=== PATIENT | female | born 1930 | race Caucasian/White ===

== ENCOUNTER 2016-09-13 05:15 | Emergency (ER) | payer MEDICARE, MEDICAID ==
[2016-09-13 05:18] VITALS: BMI 23.3
--- NOTE | 2016-09-13 05:46 | EDPRACDOC ---
- General Chief Complaint: Fall Stated Complaint: FALL: LOWER BACK PAIN Time Seen by Provider: 09/13/16 05:29 Information Source: Family, Long-Term, Case Management Director Exam Limitations: Other (dementia) - History of Present Illness Onset: SUB ACUTE CARE NURSE Injuries/Pain Location: Reports: back. Denies: head Reason for Fall: Reports: slipped Loss of Consciousness: no loss of consciousness Associated Symptoms (Fall): Reports: other (lower back pain which her family stated is chronic) Allergies/Adverse Reactions: Allergies No Known Allergies Allergy (Verified 09/13/16 05:27) Home Medications: Ambulatory Orders Bisoprolol Fumarate [Zebeta] 2.5 mg PO DAILY 01/03/14 Ipratropium/Albuterol Sulfate [Duoneb 0.5 mg-3 mg/3 ml Soln] 3 ml NEB TID Isosorbide Mononitrate [Imdur] 15 mg PO DAILY 01/03/14 Memantine HCl [Namenda] 10 mg PO BID 01/03/14 Nitroglycerin [Nitrostat] 0.4 mg SL Q5MX3 PRN 01/03/14 Sertraline HCl [Zoloft] 50 mg PO QHS 01/03/14 Atorvastatin Calcium [Lipitor] 80 mg PO HS 07/26/15 Latanoprost 1 drop OU QHS 07/26/15 Omeprazole 40 mg PO DAILY 07/26/15 PEG-Electrolytes (Miralax) [Miralax] 17 g PO Q48H 07/26/15 Acetaminophen [Acetaminophen Extra Strength] 1,000 mg PO Q6H PRN 07/27/15 Aspirin [Children's Aspirin] 81 mg PO DAILY 07/27/15 Calcium Carbonate/Vitamin D3 [Calcium + Vit D Caplet (600mg/400IU)] 1 tab PO DAILY 07/27/15 Clopidogrel Bisulfate [Plavix] 75 mg PO DAILY 07/27/15 Oxybutynin Chloride [Oxybutynin Chloride ER] 10 mg PO DAILY 07/27/15 Furosemide 20 mg PO .QEVENING 08/18/15 Tramadol-Acetaminophen [Ultracet 37.5/325] 1 tab PO TID 08/18/15 Furosemide [Lasix] 40 mg PO QAM 08/31/15 Rivastigmine Tartrate [Exelon 4.6 mg Patch] 4.6 mg TD DAILY 11/20/15 Levothyroxine [Synthroid, Levoxyl] 125 mcg PO DAILY 05/12/16 Mag Hydrox/Al Hydrox/Simeth [Maalox Suspension] 30 ml PO Q6H PRN 05/12/16 Magnesium Hydroxide [Milk of Magnesia] 30 ml PO BID PRN 05/12/16 Benzocaine [Orajel] 7 gm MM TID PRN 09/13/16 Budesonide [Pulmicort Flexhaler] 180 mcg IH BID 09/13/16 Cholecalciferol (Vitamin D3) [Vitamin D3 (cholecalciferol)] 5,000 unit PO WEEKLY 09/13/16 Loperamide HCl [Imodium A-D] 2 mg PO .ASDIRECTED 09/13/16 Other History: she suffers w chronic back pain and has seen a day habilitation specialist. her family stated that the degree of pain that she is expressing today is consistent with what theyve seen in the past. ED Past Medical History - History Reviewed Yes Nurses notes reviewed and agree except as marked - Patient Medical History Neurological History: Reports: Dementia Cardiac History: Reports: Coronary Artery Disease, Hypertension, Congestive Heart Failure, Cardiac Catheterization, CABG (3 VESSEL), Hypercholesterolemia, Syncope (07/26/15 IN ED) Respiratory History: Reports: COPD, Pneumonia GI/ History: Reports: Gastroesophageal Reflux Musculoskeletal History: Reports: Arthritis (also GLAUCOMA, cataracts.) Psychological History: Denies: Depression, Substance Use Disorder Surgical History: Reports: CABG (3 VESSEL), Cardiac Catheterization - Family Medical History Reports: Hypertension (SISTERS, BROTHER), Cancer (MOTHER-COLON), Cardiac Disorders (SISTER- PACEMAKER). Denies: Diabetes, Stroke - Social Medical History Smoking Status: Never smoker Social History: Denies: Substance Use Disorder EDM Review of Systems - Review of Systems ROS Unobtainable: Yes Review of systems cannot be obtained due to the patient's medical condition (dementia) - Physical Exam Constitutional: Alert (Awake), No apparent distress Oriented to: Time, Person, Place Last recorded Vital Signs: Last Vital Signs Temp 98 F 09/13/16 05:19 Pulse 56 L 09/13/16 05:19 Resp 18 09/13/16 05:19 BP 146/68 09/13/16 05:19 Pulse Ox 95 09/13/16 05:19 Oxygen Pulse Oxygen Saturation 95 O2 Device Room Air Oxygen Flow Rate Fraction of Inspired Oxygen ( FIO2) - HEENT Head: Normal ( normocephalic) Eye Exam: Normal (PERRL, EOMI, Sclera white) Oropharynx: Normal (Pharynx:Moist without exudate,Gums-no swelling) Tympanic Membrane: Normal ENT EAC: Normal TMJ: Normal Nose: No Symptoms Reported (septum midline) Neck: negative: Step off (very mild cspine tenderness) - Respiratory/Cardiovascular Respiratory: Normal - CTA (BBS clear to auscultation without adventitious sounds ) Cardiovascular: Normal (RRR without murmur, gallop or rub) - GI Auscultation: Normal (NABS) Palpation: Normal (Soft,No rebound or guarding, non distended) Tenderness: Non tender Carlson's Sign: Negative - Musculoskeletal Back: Lumbar TTP. negative: Lumbar Step-off Extremities: Normal (Normal tone, Pulses 2+ No cyanosis or edema, FROM), Other ( no pain upon log roll of the hip,r) - Integumentary Skin: Normal, Warm, Dry Lymphatics: Normal (no adenopathy) - Neurologic Memory Impaired: Normal Motor Function: Normal (Normal tone, Pulses 2+ No cyanosis or edema, FROM) Cranial Nerve: Normal (CN II-X11 intact sensation, strength 5/5) Cerebellar: Normal Mood Description: Normal Perception: Normal - Re-evaluation Re-evaluation 1 Re-evaluation Time: 07:10 (i had a discussion with the pt's sisters about the xray findings. the pt has a day habilitation specialist, and i suggested that she should see her day habilitation specialist again. the sisters described her back pain as being severe and chronic. i do not believe that transfer to the care of a spin surgeon is warranted at this time. i believe that she should f/u with her day habilitation specialist and her sisters are going to speak with her facility about restarting therapy.) - Diagnostic Imaging C-spine Image interpreted by: Radiologist (chonic djd and compressions.no fracture.) Hip Image interpreted by: Radiologist (no fracture) L-Spine Image interpreted by: Radiologist (severe djd, osteoporosis, posibly new ompression,L1 but with sclerotic change) Decision Time to Discharge: 07:12 - Departure Yes I personally saw and evaluated the patient. Disposition: Custodial Facility Condition: Stable Final Diagnosis: Falls, Osteoporosis Lumbar spine strain Qualifiers: Encounter type: initial encounter Qualified Code(s): S39.012A - Strain of muscle, fascia and tendon of lower back, initial encounter Compression fx, lumbar spine Qualifiers: Encounter type: initial encounter Fracture type: closed Qualified Code(s): S32.000A - Wedge compression fracture of unspecified lumbar vertebra, initial encounter for closed fracture Instructions: RICE: Routine Care for Injuries, Back Pain, Thoracic (Lumbar) Strain, Vertebral Compression Fracture (ED), Fall Prevention for Older Adults ( ED) Education/Counseling Given To: Family Member Education/Counseling Given Regarding: Diagnosis, Treatment, Follow Up Additional Instructions: Call her day habilitation specialist to schedule the earliest available outpatient appointment.
--- NOTE | 2016-09-13 06:46 | DIRPT ---
CLINICAL DATA: Status post fall in bathroom. Found on floor. Right hip pain. Initial encounter. EXAM: RIGHT HIP (WITH PELVIS) 2-3 VIEWS COMPARISON: Pelvis radiograph performed 05/12/2016 FINDINGS: There is no evidence of fracture or dislocation. Both femoral heads are seated normally within their respective acetabula. The proximal right femur appears intact. Mild degenerative change is noted at the sacroiliac joints bilaterally. The visualized bowel gas pattern is grossly unremarkable in appearance. Clips are noted at the inguinal regions bilaterally. IMPRESSION: No evidence of fracture or dislocation. Electronically Signed By: Arsh Wetzel M.D. On: 09/13/2016 06:43
[2016-09-13] MEDS ORDERED: ACETAMINOPHEN 325 MG/TAB TABLET PO ONE (06:47)
--- NOTE | 2016-09-13 06:48 | DIRPT ---
CLINICAL DATA: Status post fall in bathroom. Found on floor. Neck pain. Initial encounter. EXAM: CERVICAL SPINE - COMPLETE 4+ VIEW COMPARISON: CT of the cervical spine performed 05/12/2016 FINDINGS: There is no evidence of acute fracture or subluxation. There is stable mild grade 1 anterolisthesis of C3 on C4. Degenerative change at the lower cervical spine is better characterized on prior CT. Chronic compression deformities are noted at the midthoracic spine. Prevertebral soft tissues are within normal limits. The provided odontoid view demonstrates no significant abnormality. The visualized lung apices are clear. IMPRESSION: 1. No evidence of acute fracture or subluxation along the cervical spine. 2. Mild degenerative change again noted along the cervical spine, and chronic compression deformities at the mid thoracic spine. Electronically Signed By: Arsh Wetzel M.D. On: 09/13/2016 06:45
--- NOTE | 2016-09-13 06:55 | DIRPT ---
CLINICAL DATA: Status post fall. Found on floor in bathroom. Lower back pain. Initial encounter. EXAM: LUMBAR SPINE - COMPLETE 4+ VIEW COMPARISON: Lumbar spine radiographs performed 12/04/2015 FINDINGS: There is significantly worsened compression deformity of vertebral body L1. Some of this may be acute in nature, though there is associated sclerotic change. The compression deformity at L2 appears relatively stable, with associated sclerotic change. No additional fractures are seen. Scattered calcification is noted along the abdominal aorta. The visualized bowel gas pattern is grossly unremarkable. Mild sclerotic change is noted at the sacroiliac joints. IMPRESSION: Significantly worsened compression deformity of vertebral body L1. Some of this may be acute in nature, given the patient's symptoms, though associated sclerotic change is seen. The compression deformity at L2 appears stable from November 2015. Electronically Signed By: Arsh Wetzel M.D. On: 09/13/2016 06:52
[2016-09-13 07:59] VITALS: BP 137/63; PULSE 57; TEMP 98.5
== END 2016-09-13 07:55 ==
LOC: ED 05:15
DX: S32.000A Wedge compression fracture of unspecified lumbar vertebra, initial encounter for closed fracture (principal); S39.012A Strain of muscle, fascia and tendon of lower back, initial encounter; W01.0XXA Fall on same level from slipping, tripping and stumbling without subsequent striking against object, initial encounter; M81.0 Age-related osteoporosis without current pathological fracture; J44.9 Chronic obstructive pulmonary disease, unspecified; K21.9 Gastro-esophageal reflux disease without esophagitis; F03.90 Unspecified dementia, unspecified severity, without behavioral disturbance, psychotic disturbance, mood disturbance, and anxiety; I25.10 Atherosclerotic heart disease of native coronary artery without angina pectoris; I10 Essential (primary) hypertension; I50.9 Heart failure, unspecified; E78.00 Pure hypercholesterolemia, unspecified; Z79.899 Other long term (current) drug therapy
CPT/HCPCS: 72050; 72110; 73502; 99283; A9270; J3490